=== PATIENT | male | born 1995 | race Hispanic/Latino ===

== ENCOUNTER 2019-10-03 18:33 | Emergency (ER) | payer OTHER, SELFPAY ==
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
[2019-10-03 19:00] VITALS: BP 124/71; PULSE 81; RESP 19; TEMP 36.9; O2SAT 99
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
[2019-10-03] MEDS: IBUPROFEN 600 MG TABLET PO (19:49)
[2019-10-03] MEDS: ACETAMINOPHEN 500 MG TABLET 1000 MG PO (19:49)
[2019-10-03 21:00] VITALS: BP 134/75; PULSE 78; RESP 16; O2SAT 98
== END 2019-10-03 21:04 | disposition home or self-care (01) ==
PROVIDERS: Emergency Provider Emergency Medicine; PCP Emergency Medicine
DX: S29.012A Strain of muscle and tendon of back wall of thorax, initial encounter (principal); K21.9 Gastro-esophageal reflux disease without esophagitis; F17.210 Nicotine dependence, cigarettes, uncomplicated; V49.40XA Driver injured in collision with unspecified motor vehicles in traffic accident, initial encounter
CPT/HCPCS: 72128; 72131; 99284; A9270

== ENCOUNTER 2020-11-11 07:13 | Emergency (ER) | payer SELFPAY ==
[2020-11-11] VITALS (21 sets, daily range): BP systolic 106–148; BP diastolic 56–99; PULSE 54–88; RESP 14–25; TEMP 36.6; O2SAT 93–100
--- NOTE | ~2020-11-11 | XR_ITS ---
EXAMINATION: XR chest 2V DATE: 11/11/2020 08:10 INDICATION: Soreness of breath. Lungs heart. Weakness. TECHNIQUE: PA and lateral views of the chest were obtained. COMPARISON: Chest radiograph and CT dated 05/20/2015 FINDINGS: The lungs remain clear with no focal airspace opacities, pulmonary edema, pleural effusion or pneumot horax. The cardiomediastinal silhouette is normal. Mild thoracic spondylosis. IMPRESSION: 1. No acute cardiopulmonary disease. Reviewed, dictated and finalized at location A.
--- NOTE | 2020-11-11 07:25 | ECG_ITS ---
Measurements Intervals [place] Rate: 52 P: 36 SD: 145 QRS: 20 QRSD: 81 T: 21 QT: 365 QTc: 342 Interpretive Statements SINUS BRADYCARDIA BORDERLINE ECG Electronically Signed On 11-11-2020 7:55:54 CDT by Jayy Sheffield D.O.
[2020-11-11 07:38] LABS: Basophils Absolute Auto 0.1 K/mm3 (0.0-0.1); Basophils Percent Auto 0.6 % (0.2-1.2); Eosinophils Absolute Auto 0.2 K/mm3 (0-0.3); Eosinophils Percent Auto 1.4 % (0-4.4); Hematocrit 47.2 % (42.0-52.0); Hemoglobin 16.1 g/dL (14.0-18.0); Immature Granulocyte Absolute 0.07 K/mm3 (0.00-0.031); Immature Granulocyte Percent A 0.7 % (0-0.5); Lymphocytes Absolute Auto 3.48 K/mm3 (0.9-3.2); Lymphocytes Percent Auto 33.5 % (18.3-44.2); Mean Corpuscular HGB Conc 34.1 g/dl (32-36); Mean Corpuscular Hemoglobin 31.1 pg (26-34); Mean Corpuscular Volume 91.3 fl (80-100); Mean Platelet Volume 9.9 fl (7.4-10.4); Monocytes Percent Auto 9.3 % (2.6-8.5); Neutrophils Absolute Auto 5.7 K/mm3 (1.3-6.7); Neutrophils Percent Auto 54.5 % (45.5-73.1); Platelet Count Result 282 k/mm3 (150-375); Red Blood Count 5.17 M/mm3 (4.6-6.20); Red Cell Distribution Width 12.2 % (11.5-14.5); White Blood Count 10.4 K/mm3 (4.5-10.0)
--- NOTE | 2020-11-11 07:45 | ED.ABDPAIN ---
HPI - Abdominal Pain General Chief Complaint: Shortness of Breath/Dyspnea Stated Complaint: sob Time Seen by Provider: 11/11/20 07:31 Source: patient Mode of arrival: ambulatory Limitations: no limitations History of Present Illness HPI narrative: 25-year-old male No past medical history Patient complains of abdominal pain and chest pain which started yesterday and is worsened overnight Discomfort seems to start in the upper abdomen and spread out through his ribs and chest Associated with some mild nausea but no vomiting Worse with deep inspiration and he does have somewhat of a chronic smoker's cough but it is not worse than usual Cannot think of anything else that makes things better or worse, he took one of his dad's Xanax but that did not help Patient smokes half a pack of cigarettes a day Patient indicates that about 3 times a week he drinks very heavily, at least a pint of shots along with some beers Never has been a problem for him before Related Data Home Medications Medication Instructions Recorded Confirmed alprazolam [Xanax] 1 mg PO TID PRN 11/11/20 Allergies Allergy/AdvReac Type Severity Reaction Status Date / Time No Known Allergies Allergy Verified 11/11/20 07:25 Review of Systems Review of Systems: All systems reviewed & are unremarkable except as noted in HPI and below Constitutional: Constitutional: Denies chills, Denies fatigue, Denies fever(s), Denies headache(s) and Denies weakness Eyes: Eyes: Reports no additional eye complaints and Denies change in vision ENT: Denies headache(s), Denies epistaxis, Denies nasal congestion and Denies sore throat Cardiovascular: Cardiovascular: Reports chest pain, Denies leg edema, Denies palpitations and Denies dyspnea Respiratory: Respiratory: Reports cough, Reports dyspnea and Denies wheezing Gastrointestinal: Gastrointestinal: Reports abdominal pain, Denies diarrhea, Reports nausea and Denies vomiting Genitourinary: Genitourinary: Denies hematuria, Denies dysuria and Denies urinary frequency Musculoskeletal: Musculoskeletal: Denies deformity, Denies arthralgias, Denies joint swelling, Denies muscle weakness and Denies numbness Integumentary/Breasts: Skin/Breast: Denies rash and Denies wounds Neurologic: Denies headache(s), Denies focal weakness, Denies numbness and Denies weakness Psychiatric: Psychiatric: Reports no additional psychiatric complaints Endocrine: Endocrine: Denies fatigue and Denies palpitations Hematologic/Lymphatic: Hematologic/Lymphatic: Denies easy bleeding and Denies easy bruising Allergic/Immunologic: Allergic/Immunologic: Denies wheezing PMFSH Past Medical History Medical History (Updated 11/11/20 @ 11:51 by Demarcus Babin MD) Anxiety Cyst intestinal GERD (gastroesophageal reflux disease) Surgical History Surgical History (Updated 10/03/19 @ 19:52 by Valerie Tong) H/O plastic surgery face Family History Family History Other Diabetes mellitus Social History Social History Smoking packs per day: 0.5 Smoking cigarettes per day: 10.0 Smoking status: Current every day smoker Alcohol intake: never Gender identity (if verbalized by the patient): Male Exam Const: General: well developed, alert and awake Nutritional Appearance: well nourished Orientation/consciousness: patient oriented x3 (alert) Limitations: no limitations HENMT: Head: normocephalic and atraumatic Ears: external ears normal General nose exam: No nasal discharge present and no epistaxis Face and sinus: face symmetric Eyes: Conjunctivae: conjunctivae normal Sclera: sclerae normal EOM: EOMs intact bilaterally Neck: Neck: normal visual inspection, supple and no JVD Chest: Chest palpation & inspection: deferred Resp: Effort & Inspection: normal respiratory effort Auscultation: clear to auscultation bila
[2020-11-11 07:49] LABS: Anion Gap 5 mmol/L (8-16); Blood Urea Nitrogen 15 mg/dL (9-20); Calcium 9.1 mg/dL (8.4-10.2); Carbon Dioxide 32 mmol/L (22-30); Chloride 102 mmol/L (98-107); Estimated CRCL calculation 88 ml/min; Estimated Glomerular Filt Rate > 60; Glucose 111 mg/dL (75-110); Sodium 139 mmol/L (137-145)
[2020-11-11] MEDS: BELLADONNA ALK/PHENOB ELIX 10 ML, MAG HYDROX/ALUMINUM HYD/SIMETH 30 ML, LIDOCAINE HCL 2... PO (07:51)
[2020-11-11] MEDS: LACTATED RINGERS 1,000 ML 999 ML IV CONT (07:52)
[2020-11-11] MEDS: FAMOTIDINE 20 MG/2 ML VIAL 40 MG IV PUSH (07:54)
[2020-11-11 07:56] LABS: D Dimer 0.27 ug/mL (<0.48)
[2020-11-11 08:07] LABS: Alanine Aminotransferase 56 U/L (4-50); Albumin Level 4.2 g/dL (3.5-5.1); Alkaline Phosphatase 88 U/L (38-126); Aspartate Amino Transferase 32 U/L (17-59); Bilirubin,Total 0.3 mg/dL (0.2-1.3); Lipase 199 U/L (23-300)
[2020-11-11 08:18] LABS: Troponin I < 0.012 ng/mL (0.000-0.034)
[2020-11-11] MEDS: KETOROLAC 30 MG/ML VIAL (*BKC) IV PUSH (10:04)
== END 2020-11-11 12:06 | disposition home or self-care (01) ==
PROVIDERS: Emergency Provider Emergency Medicine; PCP Emergency Medicine
DX: R10.10 Upper abdominal pain, unspecified (principal); F10.10 Alcohol abuse, uncomplicated; Y90.9 Presence of alcohol in blood, level not specified; F41.9 Anxiety disorder, unspecified; K21.9 Gastro-esophageal reflux disease without esophagitis; F17.210 Nicotine dependence, cigarettes, uncomplicated; R00.1 Bradycardia, unspecified
CPT/HCPCS: 36415; 71046; 80048; 80076; 83690; 84484; 85025; 85380; 93005; 96361; 96374; 96375; 99284; A9270; J1885; J7120

== ENCOUNTER 2021-04-01 02:12 | Emergency (ER) | payer SELFPAY ==
--- NOTE | ~2021-04-01 | XR_ITS ---
EXAMINATION: XR chest 2V 04/01/2021 03:58 INDICATION: Lower chest pain. Epigastric pain. PROCEDURE: 2 view chest COMPARISON: Comparison to multiple prior studies sequentially, with oldest reviewed study dated 03/2013. FINDINGS: The lungs are clear. The cardiomediastinal silhouette is within normal limits. There are no pleural effusions. There is no pneumothorax suspected. IMPRESSION: 1: NO ACUTE CARDIOPULMONARY DISEASE. Reviewed, dictated and finalized at location A.
[2021-04-01 02:17] VITALS: BP 129/100; PULSE 62; RESP 18; TEMP 36.1; O2SAT 100
--- NOTE | 2021-04-01 02:20 | ECG_ITS ---
Measurements Intervals [place] Rate: 66 P: 38 NM: 158 QRS: 7 QRSD: 98 T: 15 QT: 343 QTc: 362 Interpretive Statements SINUS RHYTHM VOLTAGE CRITERIA FOR LVH BORDERLINE ECG Electronically Signed On 04-01-2021 6:34:53 CDT by Jayy Sheffield D.O.
[2021-04-01 02:35] LABS: Basophils Absolute Auto 0.1 K/mm3 (0.0-0.1); Basophils Percent Auto 0.5 % (0.2-1.2); Eosinophils Absolute Auto 0.2 K/mm3 (0-0.3); Eosinophils Percent Auto 1.3 % (0-4.4); Hematocrit 46.6 % (42.0-52.0); Hemoglobin 15.6 g/dL (14.0-18.0); Immature Granulocyte Absolute 0.06 K/mm3 (0.00-0.031); Immature Granulocyte Percent A 0.5 % (0-0.5); Lymphocytes Absolute Auto 2.46 K/mm3 (0.9-3.2); Mean Corpuscular HGB Conc 33.5 g/dl (32-36); Mean Corpuscular Hemoglobin 30.2 pg (26-34); Mean Corpuscular Volume 90.3 fl (80-100); Mean Platelet Volume 9.9 fl (7.4-10.4); Monocytes Percent Auto 7.5 % (2.6-8.5); Neutrophils Absolute Auto 9.3 K/mm3 (1.3-6.7); Neutrophils Percent Auto 71.2 % (45.5-73.1); Platelet Count Result 263 k/mm3 (150-375); Red Blood Count 5.16 M/mm3 (4.6-6.20); Red Cell Distribution Width 12.1 % (11.5-14.5)
[2021-04-01 02:45] LABS: Anion Gap 8 mmol/L (8-16); Blood Urea Nitrogen 14 mg/dL (9-20); Calcium 9.6 mg/dL (8.4-10.2); Carbon Dioxide 27 mmol/L (22-30); Chloride 104 mmol/L (98-107); Estimated CRCL calculation 97 ml/min; Estimated Glomerular Filt Rate > 60; Glucose 106 mg/dL (65-110); INR 0.8; Potassium 3.9 mmol/L (3.4-5.0); Prothrombin Time 10.8 Seconds (11.1-14.7); Sodium 139 mmol/L (137-145)
[2021-04-01 02:46] LABS: Partial Thromboplastin Time 24.6 SECONDS (22.3-36.8)
[2021-04-01 02:57] LABS: Troponin I < 0.012 ng/mL (0.000-0.034)
--- NOTE | 2021-04-01 05:25 | PC.NURSE ---
Pt called to go to room.
--- NOTE | 2021-04-01 06:04 | PC.NURSE ---
Pt called to room with no answer
== END 2021-04-02 04:50 | disposition left against medical advice (07) ==
PROVIDERS: Emergency Provider Emergency Medicine; PCP Emergency Medicine
DX: R07.9 Chest pain, unspecified (principal)
CPT/HCPCS: 36415; 71046; 80048; 84484; 85025; 85610; 85730; 93005; 99199

== ENCOUNTER 2024-02-13 09:55 | Outpatient (CLI) | payer OTHER, SELFPAY ==
--- NOTE | ~2024-02-13 | NM_ITS ---
EXAMINATION: NM hepatobiliary wo pharm DATE: 02/13/2024 14:08 INDICATION: Disease of gallbladder COMPARISON: None. TECHNIQUE: 4.3 mCi Tc-99m mebrofenin (Choletec) was administered intravenously. Scintigraphic images of the abdomen were obtained for one hour. At the 1 hour time point, the patient drank 8 oz Ensure, and imaging was continued for 60 minutes. Gallbladder ejection fraction was calculated by the technol ogist. FINDINGS: There is normal clearance of radiotracer from the blood pool. There is homogeneous tracer u ptake by the liver. Activity progresses to the bowel. No gallbladder uptake through the first one ho ur of imaging although there is a small amount of activity seen in the gallbladder on the 4 hour imag ing essentially precluding acute cholecystitis. IMPRESSION: 1. Delayed accumulation of activity in the gallbladder which could be due to suboptimal fasting or c hronic cholecystitis in the appropriate clinical setting but which essentially precludes acute cholec ystitis. Reviewed, dictated and finalized at location B. IMPRESSION: 1. Delayed accumulation of activity in the gallbladder which could be due to s uboptimal fasting or chronic cholecystitis in the appropriate clinical setting but which essentially precludes acute cholecystitis.
== END 2024-02-13 09:56 | disposition home or self-care (01) ==
PROVIDERS: PCP Emergency Medicine; Visit Provider Emergency Medicine
DX: K82.9 Disease of gallbladder, unspecified (principal)
CPT/HCPCS: 78226; A9537

== ENCOUNTER 2024-03-16 08:08 | Outpatient (CLI) | payer OTHER, SELFPAY ==
[2024-03-16 15:50] LABS: Amylase 97 U/L (30-110); Lipase 140 U/L (23-300)
== END 2024-03-16 08:09 | disposition home or self-care (01) ==
PROVIDERS: PCP Emergency Medicine; Visit Provider Surgery
DX: Z01.818 Encounter for other preprocedural examination (principal); K80.20 Calculus of gallbladder without cholecystitis without obstruction
CPT/HCPCS: 36415; 82150; 83690

== ENCOUNTER 2024-03-19 01:05 | Day surgery (SDC) | payer OTHER, SELFPAY ==
[2024-03-14 10:05] VITALS: BMI 39.2
--- NOTE | 2024-03-14 10:06 | PC.NURSE ---
Report to the Outpatient Waiting Room, entrance under the green pavilion located off [facility], at time _1130_ on date _[id number]_. Planned Procedure Time: _130pm_. Time changes happen often and if your time is changed the preop area will call you the afternoon before. - You and your visitor will be asked to self-screen and do not enter if you have any COVID symptoms. - A mask is optional within the hospital at this time. Patients may have clear liquids (water, carbonated beverages, clear teas, apple juice) until 3 hours prior to surgery with a maximum of 20 ounces. - No food from midnight until time of surgery Take the following medications with a SIP of water the morning of surgery: __Alprazolam if needed. DO NOT STOP ANY OF YOUR OTHER PRESCRIPTION MEDICATIONS PRIOR TO SURGERY ?EXCEPT THE FOLLOWING Medications to discontinue per physician None Please no make-up, nail slovenian, hairspray, perfume, deodorant, or body powder the day of surgery. No jewelry (including any body piercings) or valuables the day of surgery, leave them at home. Please take a shower or bath the night before, or the morning of, surgery with an antibacterial soap. Wear comfortable, loose fitting clothing. - Jewelry must be removed prior to entering the operating room. Rings and piercings that are not removed may be cut off. - The hospital will not accept responsibility for valuables. - Please leave all valuables, including medications, at home the day of surgery. If you are going home after surgery, a licensed lokie driver must drive you home. - NO public transportation without another adult if you receive anesthesia. - We recommend that an adult stay with you for 24 hours following discharge. - We also recommend that you do not drive, make important decision, drink alcoholic beverages, or take any drugs that were not prescribed by your health care provider for at least 24 hours after your discharge time. Follow any additional instructions given to you from your surgeon. If you or anyone in your household have experienced Covid symptoms in the past week, please notify your surgeon or the nurse liaison at the phone number below for possible testing. Telephone instructions given to __Almondo___and asked if any additional questions and then verbalized understanding. Patient advised to call surgeon office or pre surgery nurse liaison [phone] if any additional questions.
[2024-03-19] VITALS (8 sets, daily range): BP systolic 107–151; BP diastolic 49–86; PULSE 67–89; RESP 14–18; TEMP 36–36.2; O2SAT 94–100
[2024-03-19] MEDS: LACTATED RINGERS 1,000 ML 30 ML IV CONT ×2 (13:00→15:47)
[2024-03-19] MEDS: LIDO 1%/EPINEPHRINE 1:100,000 20 ML VIAL 25 ML INFILTRATE (13:13)
--- NOTE | 2024-03-19 13:38 | P.PNAN_ITS ---
Anes - Initial Pre Proc Eval Procedure: Operation Date: 03/19/24 13:30 Proposed Procedures p Laparoscopic Cholecystectomy, Possible Open - Homar Ram MD Date/Time: 03/19/24 13:38 Surgeon: Homar Ram MD Pre Op Diagnosis: symp cholelithiasis Patient Data Age: 28 Gender: M Height: 1.7 m Weight: 112.2 kg Allergies Allergy/AdvReac Type Severity Reaction Status Date / Time No Known Allergies Allergy Verified 03/14/24 09:59 Home Medications Medication Instructions Recorded Confirmed Type alprazolam 1 mg tablet (Xanax) 1 mg PO TID PRN Anxiety 11/11/20 03/14/24 History pantoprazole 40 mg tablet,delayed 40 mg PO HS 4 weeks #28 tabs 11/11/20 03/14/24 Rx release (Protonix) Patient hx anesthesia problems: none Family hx anesthesia problems: none Results Review: All pre-operative results and documents have been reviewed as part of the pre- operative evaluation. [facility] Past Medical History Medical History Anxiety Cyst intestinal GERD (gastroesophageal reflux disease) Surgical History Surgical History H/O plastic surgery face Family History Family History Other Depression Diabetes mellitus Heart disease Thyroid disorder Social History Social History Smoking packs per day: 0.5 Smoking cigarettes per day: 10.0 Smoking status: Never smoker Alcohol intake: current Substance use type: marijuana Other substance usage details: three times a week. Do You Feel Safe in your Home?: Yes Lack of Transportation: No Lack of Food: Never True Current Housing: I Have Housing Concerned About Future Housing: No Difficulty Paying Gas/Electric Bills: No Difficulty Paying for Meds: No Currently Unemployed: No Education: High School Diploma/GED Difficulty w/ Childcare or Family Care: No Living arrangements: with family Gender identity (if verbalized by the patient): Male Spiritual care concerns: No Anes - Eval Final PreProcedure Day of Procedure 03/19/24 13:38 Patient weight: obese Heart: regular rate and rhythm Lungs: clear to auscultation Airway: Mallampati scale class II Neurological: alert and oriented Last oral intake: >/= 8 hours ASA classification: III Emergent: no Anesthetic plan: proceed Anesthesia type and monitoring: general ETT and standard monitoring Results Review: All pre-operative results and documents have been reviewed as part of the pre- operative evaluation. Informed Consent: The patient's anesthetic plan and its attendant risks and benefits were discussed with the patient/family/POA. Questions were solicited and answers provided to the satisfaction of the patient/family/POA.
[2024-03-19] MEDS: ACETAMINOPHEN 500 MG TABLET 1000 MG PO (13:50)
[2024-03-19] MEDS: KETOROLAC 15 MG/ML VIAL (*BKC) IV PUSH ×2 (13:50→15:32)
--- NOTE | 2024-03-19 13:57 | WPDHPUPDATE1 ---
History and Physical Update Update Date/Time: 03/19/24 13:57 History and Physical has been reviewed, including an updated exam of the patient. There are NO changes in the patient's condition. Risks, benefits, and alternatives have been discussed and questions answered. Patient agrees to proceed with procedure.
[2024-03-19] MEDS: ceFAZolin 2 GM/D5W 50 ML 2 GM/50 ML BAG IVPB (14:10)
--- NOTE | 2024-03-19 15:54 | W.PM.PROC2 ---
Procedure Note - Detailed Date of Procedure 03/19/24 Pre-op Diagnosis Symptomatic cholelithiasis Post-op Diagnosis Other (Chronic cholecystitis secondary to cholelithiasis) Procedure Performed Laparoscopic cholecystectomy Surgeon Homar Ram MD Anesthesia General Indications Patient is a 28-year-old male who presented consent comes of right upper quadrant abdominal pain with eating. Abdominal ultrasound showed gallstones. He presents now for elective laparoscopic cholecystectomy. Findings The patient had a chronically thickened gallbladder case and a large gallstone within the gallbladder. He had chronic inflammatory changes the gallbladder wall but no acute inflammatory changes. Description of Procedure After informed consent was obtained patient brought to the operating room was placed supine position and general endotracheal anesthesia was administered. The abdomen was then prepped and draped usual sterile fashion. A time-out was then performed correctly identifying the patient as well as procedure to be performed. He was given perioperative IV antibiotics. I entered the left upper quadrant the abdomen utilizing a 5mm Optiview port. Once inside the abdomen insufflated to adequate pneumoperitoneum of 15mmHg of CO2. The patient had previous large transverse abdominal incision made as a child and there was no incisional hernia in this area and actually no adhesions to the abdominal wall underneath this area. This gave me a clear view to place a 5mm periumbilical trocar port as well as a 10mm epigastric trocar port and 2 more 5mm right subcostal trocar ports all under direct visualization. The laparoscopic was then switched over to the periumbilical trocar port and then a laparoscopic grasper was used to hold the gallbladder at the dome. The gallbladder wall was thickened and chronically inflamed. There seemed to be a large gallstone within the fundus of the gallbladder. There were no acute inflammatory changes. The gallbladder was held with a grasper and elevated over the right half of the returns right shoulder. A 2nd grasper was used to hold the gallbladder infundibulum. I then proceeded to strip down the visceral peritoneum off the infundibular gallbladder to identify the cystic duct. The cystic duct was dissected out circumferentially. The cystic artery was identified and dissected out circumferentially as well. Posterior wall the gallbladder at the infundibulum dissected free of the liver into the critical view was obtained. At this point I then placed 2 clips proximally on the cystic duct and 2 clips distally high on the infundibulum of the gallbladder. I then divided the cystic duct with Endo Moris. The cystic artery was then clipped and divided in a similar fashion. Gallbladder was resected off the liver electrocautery. Near the dome of the gallbladder because of the large gallstone there was chronic inflammation to the gallbladder liver bed and a port dissection plane. Made a whole back wall the gallbladder during this dissection and the large gallstone fell out. I then completed resecting the gallbladder off of the liver bed and then placed into an Endo-Catch bag. The large gallstone was placed within the bag as well removed from the abdomen. The gallbladder was placed removed through the epigastric trocar port site and sent to pathology for examination. I then irrigated out the right upper quadrant the abdomen the gallbladder fossa with sterile saline solution. A small portion of the posterior gallbladder wall at the dome was left on the liver bed and this was extensively cauterized to obliterate the mucosa. I then aspirated the fluid from the right upper quadrant the abdomen and checked for any bleeding. Hemostasis was good. I then aspirated the fluid from the pelvis as well. At this point I then removed all the trocar ports under direct visualization and port sites appeared hemostatic. I then irrigated all the port si
[2024-03-19] MEDS: fentaNYL CITRATE INJ (*CRX) 100 MCG/2 ML VIAL 25 MCG IV PUSH ×4 (16:20→16:34)
[2024-03-19] MEDS: oxyCODONE HCL (*CRX) 5 MG TAB IR PO (17:05)
== END 2024-03-19 17:30 | disposition home or self-care (01) ==
PROVIDERS: PCP Emergency Medicine; Visit Provider Surgery
PROC: 0FT44ZZ Resection of Gallbladder, Percutaneous Endoscopic Approach (ICD-10-PCS; CPT 47562; principal; 2024-03-19 13:30)
DX: K80.10 Calculus of gallbladder with chronic cholecystitis without obstruction (principal); K82.8 Other specified diseases of gallbladder; F41.9 Anxiety disorder, unspecified; K21.9 Gastro-esophageal reflux disease without esophagitis; F12.90 Cannabis use, unspecified, uncomplicated; F17.210 Nicotine dependence, cigarettes, uncomplicated; E66.9 Obesity, unspecified; Z68.38 Body mass index [BMI] 38.0-38.9, adult; Z98.890 Other specified postprocedural states; Z82.49 Family history of ischemic heart disease and other diseases of the circulatory system
CPT/HCPCS: 47562; 36415; 82150; 83690; 88304; A9270; J0690; J1100; J1885; J2250; J2405; J2704; J3010; J7120